=== PATIENT | female | born 1935 | race Caucasian/White ===

== ENCOUNTER → 2016-09-30 | Outpatient (CLI) | payer MEDICARE ==
[~2016-09-30] VITALS: Ht 154.9 cm; Wt 84.1 kg
[~2016-09-30] MED LIST: AMLO10TA2 PO; ASCO-296 PO; ASPI-558 PO; ATOR80TA76 PO; CA C1TAB15 PO; DONE10TA30 PO; FISH1CAP29 PO; FURO-35 PO; GARL1TAB PO; HYDR-4246 PO; METO-279 PO; METO-64 PO; MONT10TA25 PO; OMEP20CA10 PO; POTA20TA68 PO; REGADENOSON 0.4mg/5ml INJECTION IV ONE; SALINE FLUSH 10ml SYRINGE ONE; SUCR1TAB PO; TERA5CAP4 PO; VITA-286 PO; [UNRECOGNIZED DRUG - CODE] PO
--- NOTE | 2016-10-02 14:41 | ESTF ---
MYOCARDIAL PERFUSION SCAN DATE 09/30/2016 The patient underwent a myocardial perfusion scan. She received Lexiscan as she was unable to walk. She received 12.8 mCi of Technetium-99m Myoview for the rest study and 34.6 mCi of Technetium-99m Myoview for the stress portion of the study. She received 0.4 mg of Regadenoson. Her resting EKG shows nonspecific ST-T wave abnormalities. Her resting blood pressure was 145/48. Resting heart rate was 61. She had mild shortness of breath with the Lexiscan. Scintigraphically she was imaged post Lexiscan and again at rest. Post Lexiscan views showed no evidence of perfusion defects. Rest views were also normal. Ejection fraction was between 75 and 83%. No wall motion abnormalities were noted. CONCLUSION 1. Clinically negative for ischemia. 2. Electrocardiographically negative for ischemia as there are no significant EKG changes. 3. Mildly hypertensive blood pressure at baseline. 4. Scintigraphically negative for ischemia with well-preserved ejection fraction. No evidence of ischemia. Ejection fraction 75-83%. MTDD
== END ==
LOC: IMA 07:46
PROVIDERS: ATTEND Internal Medicine Cardiovascular Disease
DX: R07.9 Chest pain, unspecified (principal); R03.0 Elevated blood-pressure reading, without diagnosis of hypertension; R06.02 Shortness of breath
CPT/HCPCS: 78452; 93017; A9502; J2785